=== PATIENT | male | born 1975 | race Caucasian/White ===

== ENCOUNTER 2017-03-11 13:47 | Emergency (ER) | payer BC ==
[2017-03-11 13:59] VITALS: BP 147/96
--- NOTE | 2017-03-11 14:56 | UC ---
Laceration HPI - HPI Summary HPI Summary: scratched left hand on a dirty betty nail yesterday wound cleaned with soap and water here for tetanus update - History Of Current Complaint Chief Complaint: UCUpperExtremity Stated Complaint: HAND LAC Time Seen by Provider: 03/11/17 14:55 Hx Obtained From: Patient Laceration Location: Hand - l Mechanism Of Injury: Sharp Trauma Onset/Duration: Sudden Onset, Lasting Days - 1 Severity: Mild Pain Intensity: 0 Pain Scale Used: 0-10 Numeric Related History: Dominant Hand Right - Allergies/Home Medications Allergies/Adverse Reactions: Allergies Allergy/AdvReac Type Severity Reaction Status Date / Time No Known Allergies Allergy Verified 03/11/17 13:59 PMH/Surg Hx/FS Hx/Imm Hx Previously Healthy: Yes - Surgical History Surgical History: Yes Surgery Procedure, Year, and Place: LT THUMB FRACTURE (W/ A SCREW) 30 YEARS AGO - Family History Known Family History: Positive: None - Social History Occupation: Employed Full-time Lives: With Family Alcohol Use: Occasionally Alcohol Amount: 2 drinks/day Substance Use Type: None Smoking Status (MU): Never Smoked Tobacco - Immunization History Most Recent Tetanus Shot: unknown Hx Tetanus, Diphtheria Vaccination: Yes Vaccination Up to Date: No Review of Systems Constitutional: Negative Skin: Other - small abrasion left palm Eyes: Negative ENT: Negative Respiratory: Negative Cardiovascular: Negative Gastrointestinal: Negative Genitourinary: Negative Motor: Negative Neurovascular: Negative Musculoskeletal: Negative Neurological: Negative Psychological: Negative Is Patient Immunocompromised?: No All Other Systems Reviewed And Are Negative: Yes Physical Exam Triage Information Reviewed: Yes Appearance: Well-Appearing, No Pain Distress, Well-Nourished Vital Signs: Initial Vital Signs Temp 98.1 F 03/11/17 13:55 Pulse 72 03/11/17 13:55 Resp 12 03/11/17 13:55 BP 147/96 03/11/17 13:55 Pulse Ox 100 03/11/17 13:55 Vital Signs Reviewed: Yes Eye Exam: Normal Eyes: Positive: Conjunctiva Clear ENT Exam: Normal ENT: Positive: Normal ENT inspection, Hearing grossly normal. Negative: Nasal congestion, Nasal drainage, Trismus, Muffled/hoarse voice Dental Exam: Normal Neck exam: Normal Neck: Positive: Supple, Nontender Respiratory Exam: Normal Respiratory: Positive: Chest non-tender, No respiratory distress, No accessory muscle use Cardiovascular Exam: Normal Cardiovascular: Positive: Pulses Normal, Brisk Capillary Refill Musculoskeletal Exam: Normal Musculoskeletal: Positive: Strength Intact, ROM Intact, No Edema Neurological Exam: Normal Neurological: Positive: Alert, Muscle Tone Normal Psychological Exam: Normal Skin Exam: Other Skin: Positive: Other - small superficial abrasion left hand Laceration Course/Dx - Course/Dx Course Of Treatment: up date tetanus, soap and water wash observe for s/s of infection follow with Dr. Dubois - Differential Dx - Laceration/Wound Differental Diagnoses: Abrasion, Laceration Provider Diagnoses: left hand abrasion, tetanus update Discharge - Discharge Plan Condition: Stable Disposition: HOME Patient Education Materials: Diphtheria/Acellular Pertussis/Tetanus Booster Vaccine (By injection), Abrasion (ED) Referrals: Rodolfo Hobbs MD [Primary Care Provider] - If Needed
[2017-03-11] MEDS ORDERED: Tetan/Diph/Pertus SYR(Tdap)* 0.5 ML SYR(BOOSTRIX) use SYR IM ONE (14:58)
== END 2017-03-11 15:10 | disposition home or self-care (01) ==
LOC: UCEAST 13:47
DX: S60.512A Abrasion of left hand, initial encounter (principal); W45.0XXA Nail entering through skin, initial encounter; Y93.9 Activity, unspecified; Y92.9 Unspecified place or not applicable; Z23 Encounter for immunization
CPT/HCPCS: 90471; 90715; 99211; G0463